=== PATIENT | female | born 1955 | race Two or more races ===

== ENCOUNTER → 2017-10-09 | Outpatient (CLI) | payer OTHER ==
[~2017-10-09] MED LIST: VASOTEC10 MG NGT; XARELTO15 MG PO; XARELTO20 MG PO
== END | disposition home or self-care (01) ==
LOC: RAD 10:24
DX: S82.141D Displaced bicondylar fracture of right tibia, subsequent encounter for closed fracture with routine healing (principal); S93.401A Sprain of unspecified ligament of right ankle, initial encounter

== ENCOUNTER 2017-12-08 10:51 | Outpatient (CLI) | payer OTHER | END 2017-12-08 10:57 | disposition home or self-care (01) | LOC: RAD 10:51 | DX: M19.90 Unspecified osteoarthritis, unspecified site (principal); M12.9 Arthropathy, unspecified ==

== ENCOUNTER 2019-01-03 09:12 | Outpatient (CLI) | payer OTHER | END 2019-01-03 09:23 | disposition home or self-care (01) | LOC: RAD 09:12 | DX: M46.49 Discitis, unspecified, multiple sites in spine (principal); M19.90 Unspecified osteoarthritis, unspecified site ==

== ENCOUNTER 2019-01-14 10:35 | Outpatient (CLI) | payer OTHER | END 2019-01-14 10:53 | disposition home or self-care (01) | LOC: SONOGRAMA 10:35 → MAMO-SONO 11:15 | DX: M12.9 Arthropathy, unspecified (principal); M19.90 Unspecified osteoarthritis, unspecified site ==

== ENCOUNTER 2020-06-29 06:46 | Day surgery (SDC) | payer OTHER ==
[~2020-06-29 06:46] MED LIST changes: +AMILODIPINE PO; +BONIVA150 MG PO; +ENALAPRIL MALEA10 MG PO; +LIPITOR40 M1 PO; +VITAMIN D3 PO; +ZETIA10 MG PO
== END 2020-06-29 19:20 | disposition home or self-care (01) ==
LOC: CIR.AMB 06:46
PROVIDERS: ATTEND Surgery
DX: D24.2 Benign neoplasm of left breast (principal); Z20.822 Contact with and (suspected) exposure to COVID-19